=== PATIENT | male | born 1985 | race Hispanic/Latino ===

== ENCOUNTER 2019-09-07 09:03 | Emergency (ER) | payer BC, OTHER ==
[2019-09-07] MEDS ORDERED: HYDROCODONE/APAP 5/325 MG TAB ONE (09:44)
[2019-09-07] MEDS ORDERED: COLCHICINE 0.6 MG TAB ONE (09:44)
--- NOTE | 2019-09-07 11:18 | ER ---
Nurse's Notes [facility] Name: Crissy Mackey Age: 34 yrs Sex: Male : 1985 Arrival Date: 09/07/2019 Time: 09:09 Bed 19 Private MD: Mark Wylie E Diagnosis: Pain in right foot;Gout Presentation: 09/07 09:27 Presenting complaint: Patient states: right foot pain that started this morning. sv Transition of care: patient was not received from another setting of care. Onset of symptoms was September 07, 2019. Risk Assessment: Do you want to hurt yourself or someone else? Patient reports no desire to harm self or others. Initial Sepsis Screen: Does the patient meet any 2 criteria? No. Patient's initial sepsis screen is negative. Does the patient have a suspected source of infection? No. Patient's initial sepsis screen is negative. Care prior to arrival: None. 09:27 Method Of Arrival: Wheelchair sv 09:27 Acuity: SANDY 4 sv Triage Assessment: 09:29 General: Appears in no apparent distress. uncomfortable, well developed, Behavior is sv calm, cooperative, appropriate for age. Pain: Complains of pain in right foot Pain currently is 8 out of 10 on a pain scale. Pain began this morning Is intermittent, episodic, Aggravated by weight bearing. Neuro: Level of Consciousness is awake, alert, obeys commands, Oriented to person, place, time, situation, Moves all extremities. Full function. Respiratory: Respiratory effort is even, unlabored, Respiratory pattern is regular, symmetrical. Derm: Skin is normal. Historical: - Allergies: :28 No Known Allergies; sv - Home Meds: 09:28 None [Active]; sv - PMHx: : None; sv - PSHx: :28 right arm; sv - Immunization history:: Flu vaccine is not up to date. - Coronavirus screen:: The patient has NOT traveled to [place], [place], or [place] in the past 14 days. Proceed with normal triage process as indicated. The patient has NOT had contact with known/suspected case of Coronavirus? Proceed with normal triage procedures. - Social history:: Smoking status: Patient reports use of chewing tobacco. - Ebola Screening: : No symptoms or risks identified at this time. Screenin:30 Abuse screen: Denies threats or abuse. Denies injuries from another. Nutritional sv screening: No deficits noted. Tuberculosis screening: No symptoms or risk factors identified. Fall Risk None identified. Assessment: 11:40 Reassessment: Patient appears in no apparent distress at this time. No changes from sv previously documented assessment. Patient and/or family updated on plan of care and expected duration. Pain level reassessed. Patient is alert, oriented x 3, equal unlabored respirations, skin warm/dry/pink. Pt's family driving him home. Vital Signs: 09:29 BP 140 / 98; Pulse 81; Resp 16; Temp 98; Pulse Ox 99% ; Weight 86.18 kg; Height 5 ft. 5 sv in. (165.10 cm); Pain 8/10; 10:24 BP 100 / 83; Pulse 75; Resp 16; Pulse Ox 97% on R/A; sv 11:40 BP 123 / 78; Pulse 70; Resp 16; Pulse Ox 99% ; sv 09:29 Body Mass Index 31.62 (86.18 kg, 165.10 cm) sv ED Course: 09:09 Patient arrived in ED. mr 09:09 Mark Wylie MD is Private Physician. mr 09:23 Ute Infante, RN is Primary Nurse. sv 09:23 [facility]ick[facility] De [facility]-C [facility]. snw 09:23 Iván Kamara MD is Attending Physician. snw 09:28 Triage completed. sv 09:29 Arm band placed on. sv 09:30 Nurse Practitioner and/or Physician Network Management Specialist to see patient. sv 09:30 Patient has correct armband on for positive identification. Bed in low position. Call sv light in reach. Adult w/ patient. Door closed. Head of bed elevated. 10:17 X-ray(s) taken. ah 11:16 Mark Wylie MD is Referral Physician. snw 11:30 Elier wrap to right foot Ortho shoe applied to right foot. sv 11:40 No provider procedures requiring assistance completed. Patient did not have IV access sv during this emergency room visit. Administered Medications: 09:50 Drug: Colcrys 1.2 mg Route: PO; sv 11:00 Follow up: Response: No adverse reaction sv 09:50 Drug: [place] 5 mg-325 mg 1 tabs {Note: RASS0.} Route: PO; sv 11:00 Follow up: Response: No adverse reaction; Pain is decreased; RASS: Alert and Calm (0) sv Outcome: 11:17 Discharge ordered by . snhien 11:40 Discharged to home via wheelchair, with family. sv 11:40 Condition: stable 11:40 Discharge instructions given to patient, family, Instructed on discharge instructions, follow up and referral plans. medication usage, ortho shoe and elier wrap application Demonstrated understanding of instructions, follow-up care, ortho shoe and elier wrap application 11:41 Patient left the ED. sv Signatures: Ute Infante, RN RN sv Vickie De Jesus, PORT SURVEYOR-C PORT SURVEYOR-Csnw Shy Paige Amy, RN RN
--- NOTE | 2019-09-07 11:19 | EDPHYS ---
Physician Documentation [facility] Name: Crissy Mackey Age: 34 yrs Sex: Male : 1985 Arrival Date: 09/07/2019 Time: 09:09 Bed 19 Private MD: Mark Wylie E ED Physician Iván Kamara HPI: 09/07 09:41 This 34 yrs old Male presents to ER via Wheelchair with complaints of Foot snw Pain. 09:41 The patient presents with pain, that is acute. The complaints affect the dorsum of snw right foot. Context: The problem was sustained at an unknown site, resulted from an unknown cause, the patient is not able to bear weight, the patient is not able to ambulate, Problem is a result from a previous injury: No. Onset: The symptoms/episode began/occurred suddenly, this morning. Associated signs and symptoms: The patient has no apparent associated signs or symptoms. Treatment prior to arrival includes: no previous treatment. Severity of symptoms: At their worst the symptoms were moderate, severe. The patient has not experienced similar symptoms in the past. The patient has not recently seen a physician. Historical: - Allergies: 09:28 No Known Allergies; sv - Home Meds: :28 None [Active]; sv - PMHx: :28 None; sv - PSHx: :28 right arm; sv - Immunization history:: Flu vaccine is not up to date. - Coronavirus screen:: The patient has NOT traveled to [place], [place], or [place] in the past 14 days. Proceed with normal triage process as indicated. The patient has NOT had contact with known/suspected case of Coronavirus? Proceed with normal triage procedures. - Social history:: Smoking status: Patient reports use of chewing tobacco. - Ebola Screening: : No symptoms or risks identified at this time. ROS: 09:39 Constitutional: Negative for fever, chills, and weight loss, Eyes: Negative for injury, snw pain, redness, and discharge, ENT: Negative for injury, pain, and discharge, Neck: Negative for injury, pain, and swelling, Cardiovascular: Negative for chest pain, palpitations, and edema, Respiratory: Negative for shortness of breath, cough, wheezing, and pleuritic chest pain, Abdomen/GI: Negative for abdominal pain, nausea, vomiting, diarrhea, and constipation, Back: Negative for injury and pain, : Negative for injury, bleeding, discharge, and swelling, Skin: Negative for injury, rash, and discoloration, Neuro: Negative for headache, weakness, numbness, tingling, and seizure, Psych: Negative for depression, anxiety, suicide ideation, homicidal ideation, and hallucinations. 09:39 MS/extremity: Positive for pain, of the right foot. Exam: 09:38 Constitutional: This is a well developed, well nourished patient who is awake, alert, snw and in no acute distress. Head/Face: Normocephalic, atraumatic. Eyes: Pupils equal round and reactive to light, extra-ocular motions intact. Lids and lashes normal. Conjunctiva and sclera are non-icteric and not injected. Cornea within normal limits. Periorbital areas with no swelling, redness, or edema. ENT: Nares patent. No nasal discharge, no septal abnormalities noted. Tympanic membranes are normal and external auditory canals are clear. Oropharynx with no redness, swelling, or masses, exudates, or evidence of obstruction, uvula midline. Mucous membranes moist. Neck: Trachea midline, no thyromegaly or masses palpated, and no cervical lymphadenopathy. Supple, full range of motion without nuchal rigidity, or vertebral point tenderness. No Meningismus. Chest/axilla: Normal chest wall appearance and motion. Nontender with no deformity. No lesions are appreciated. Cardiovascular: Regular rate and rhythm with a normal S1 and S2. No gallops, murmurs, or rubs. Normal PMI, no JVD. No pulse deficits. Respiratory: Lungs have equal breath sounds bilaterally, clear to auscultation and percussion. No rales, rhonchi or wheezes noted. No increased work of breathing, no retractions or nasal flaring. Abdomen/GI: Soft, non-tender, with normal bowel sounds. No distension or tympany. No guarding or rebound. No evidence of tenderness throughout. Back: No spinal tenderness. No costovertebral tenderness. Full range of motion. Skin: Warm, dry with normal turgor. Normal color with no rashes, no lesions, and no evidence of cellulitis. Neuro: Awake and alert, GCS 15, oriented to person, place, time, and situation. Cranial nerves II-XII grossly intact. Motor strength 5/5 in all extremities. Sensory grossly intact. Cerebellar exam normal. Normal gait. Psych: Awake, alert, with orientation to person, place and time. Behavior, mood, and affect are within normal limits. 09:38 Musculoskeletal/extremity: Extremities: grossly normal except: noted in the right foot: tenderness, Circulation is intact in all extremities. Sensation intact. Vital Signs: 09:29 BP 140 / 98; Pulse 81; Resp 16; Temp 98; Pulse Ox 99% ; Weight 86.18 kg; Height 5 ft. 5 sv in. (165.10 cm); Pain 8/10; 10:24 BP 100 / 83; Pulse 75; Resp 16; Pulse Ox 97% on R/A; sv 11:40 BP 123 / 78; Pulse 70; Resp 16; Pulse Ox 99% ; sv 09:29 Body Mass Index 31.62 (86.18 kg, 165.10 cm) sv MDM: 09:23 Patient medically screened. snw 11:19 Data reviewed: vital signs, nurses notes. Data interpreted: Pulse oximetry: on room air snw is 97 %. Interpretation: normal. Counseling: I had a detailed discussion with the patient and/or guardian regarding: the historical points, exam findings, and any diagnostic results supporting the discharge/admit diagnosis, the presence of at least one elevated blood pressure reading (>120/80) during this emergency department visit, radiology results, the need for outpatient follow up, for definitive care, to return to the emergency department if symptoms worsen or persist or if there are any questions or concerns that arise at home. Response to treatment: the patient's symptoms have mildly improved after treatment. 09/07 09:33 Order name: Foot Right 3 View XRAY snw 09/07 11:10 Order name: Elier wrap-joint; Complete Time: 11:39 snw 09/07 11:10 Order name: Post-op shoe; Complete Time: 11:39 snw Administered Medications: 09:50 Drug: Colcrys 1.2 mg Route: PO; sv 11:00 Follow up: Response: No adverse reaction sv 09:50 Drug: [place] 5 mg-325 mg 1 tabs {Note: RASS0.} Route: PO; sv 11:00 Follow up: Response: No adverse reaction; Pain is decreased; RASS: Alert and Calm (0) sv Disposition: 16:33 Co-signature as Attending Physician, Iván Kamara MD. rn Disposition: 09/07/19 11:17 Discharged to Home. Impression: Pain in right foot, Gout. - Condition is Stable. - Discharge Instructions: Cast or Splint Care, Adult, Gout, Hypertension, Musculoskeletal Pain, Low-Purine Diet, Cryotherapy, Heat Therapy. - Prescriptions for Diclofenac Sodium 75 mg Oral Tablet Sustained Release - take 1 tablet by ORAL route 2 times per day; 30 tablet. - Work release form, Medication Reconciliation Form, Thank You Letter, Antibiotic Education, Prescription Opioid Use form. - Follow up: Emergency Department; When: As needed; Reason: Worsening of condition. Follow up: Mark Wylie MD; When: 2 - 3 days; Reason: Recheck today's complaints, Continuance of care, Re-evaluation by your physician. - Problem is new. - Symptoms are unchanged. Signatures: Dispatcher [employer] Ute Hawkins RN RN Vickie Link, LAN/WAN ENGINEER-C LAN/WAN ENGINEER-Csnw Iván Kamara MD MD lpn rn hospice: (The following items were deleted from the chart) 11:41 11:17 09/07/2019 11:17 Discharged to Home. Impression: Pain in right foot; Gout. sv Condition is Stable. Forms are Medication Reconciliation Form, Thank You Letter, Antibiotic Education, Prescription Opioid Use. Follow up: Emergency Department; When: As needed; Reason: Worsening of condition. Follow up: Mark Wylie; When: 2 - 3 days; Reason: Recheck today's complaints, Continuance of care, Re-evaluation by your physician. Problem is new. Symptoms are unchanged. snw
--- NOTE | 2019-09-07 11:28 | RAD REPORT ---
EXAM DESCRIPTION: RAD - Foot Right 3 View - 09/07/2019 10:39 am CLINICAL HISTORY: PAIN COMPARISON: No comparisons FINDINGS: No fracture, dislocation or periosteal reaction. No air or foreign body in the soft tissues. IMPRESSION: Negative right foot examination.
[2019-09-07 12:06] VITALS: TEMP 98
[2019-09-07 12:09] VITALS: BP 123/78; O2SAT 99
== END 2019-09-07 11:41 | disposition home or self-care (01) ==
LOC: ER 09:03
DX: M10.9 Gout, unspecified (principal)
CPT/HCPCS: 99284